=== PATIENT | female | born 1970 | race Caucasian/White ===

== ENCOUNTER 2020-07-26 14:40 | Emergency (ER) | payer OTHER, MEDICAID, SELFPAY ==
[2020-07-26 15:08] VITALS: BP 105/62; PULSE 80; RESP 14; TEMP 36.7; O2SAT 98; BMI 29.7
--- NOTE | 2020-07-26 16:11 | ED_ITS ---
HPI - Skin/Abscess/Foreign Bdy General Chief complaint: Skin/Abscess/Foreign Body Stated complaint: drain installed, that is inflamed, has a fever Time Seen by Provider: 07/26/20 14:44 Source: patient and family Mode of arrival: Ambulatory Limitations: no limitations History of Present Illness HPI narrative: Patient here with her . Status post double mastectomy June 26, 2020 [facility]. Left drain removed 2 weeks ago. However right drain kept in place because it is still having drainage. Serosanguineous. Yesterday patient had subjective fever at home. Denies any cough cold congestion sore throat. No urinary complaints. Patient is on Bactrim for right side drainage or redness 1 week ago. Prescribed by her surgeon. Here for blood work as requested by surgeon. CBC. Patient denies any breast pain Related Data Allergies Allergy/AdvReac Type Severity Reaction Status Date / Time povidone-iodine Allergy Verified 07/26/20 15:12 [From Betadine] soap [From Betadine] Allergy Verified 07/26/20 15:12 Review of Systems Review of Systems Narrative: GENERAL: Denies chills, fatigue, malaise, complains fever, denies sweats. HEENT: Denies sinus pain, ear pain, sore throat, difficulty swallowing, dizziness. RESPIRATORY: Denies dyspnea, cough, wheezing, hemoptysis, sputum. CARDIOVASCULAR: Denies chest pain, palpitations, orthopnea, edema, GASTROINTESTINAL: Denies nausea, vomiting, abdominal pain, diarrhea, constipatio n, melena. : Denies dysuria, frequency, incontinence, hematuria, urinary retention. MUSCULOSKELETAL: denies weakness, joint pain, or bony pain SKIN: Denies rash, skin lesions, or other NEUROLOGIC: Denies weakness, headache, numbness, change in speech, confusion, seizures, incoordination. PSYCHIATRIC: No concerning psychosocial issues. ROS Unobtainable: All systems reviewed & are unremarkable except as noted in HPI and below Patient History Social History Smoking Status: Unknown if ever smoked Smoking Status: Unknown if ever smoked alcohol intake frequency: holidays/special occasions only Substance Use Type: does not use Exam Narrative Exam Narrative: GENERAL: patient appears stated age. Well-nourished, well- developed patient, in no distress, not toxic HEAD: Atraumatic. Normocephalic. CARDIOVASCULAR: Regular rate and rhythm without murmurs, gallops, or rubs. RESPIRATORY: Clear to auscultation. Breath sounds equal bilaterally. No wheezes, rales, or rhonchi. GASTROINTESTINAL: Abdomen soft, non-tender, nondistended. NEURO: AOx4. SKIN: No rash or erythema of visible areas, female nurse at bedside to manager of internal, Dagmar, dressing removed from skin. Drainage site clean and dry. No drainage. Nontender at surgical surface and deep palpation. No palpable abscess. Fluid in the drain is serosanguineous. No pus. No lymphangitis or surrounding erythema at drainage site. Suture intact. No breast tissue tenderness or crepitus or induration PSYCH: Not anxious, is cooperative Initial Vital Signs Initial Vital Signs: Vital Signs Temperature 98.0 F 07/26/20 15:08 Pulse Rate 80 07/26/20 15:08 Respiratory Rate 14 07/26/20 15:08 Blood Pressure 105/62 07/26/20 15:08 Pulse Oximetry 98 07/26/20 15:08 Course Orders Ordered: ED Orders 07/26/20 16:22 Urinalysis and Microscopic Stat 07/26/20 16:27 Complete Blood Count AUTO DIFF Stat Comprehensive Metabolic Panel Stat Lactate (Lactic Acid) Stat Procalcitonin Stat Vital Signs Vital signs: Vital Signs - 8 hr 07/26/20 15:08 Temperature 98.0 F Pulse Rate 80 Respiratory Rate 14 Blood Pressure 105/62 Pulse Oximetry 98 MDM - Skin/Abscess/Foreign Bdy Lab Data Result diagrams: 07/26/20 16:27 07/26/20 16:27 Labs: Lab Results 07/26/20 07/26/20 07/26/20 Range/Units 16:22 16:27 16:27 WBC 2.3 L (4.5-11.0) X10^3/uL RBC 3.73 L (4.0-5.2) X10^6/uL Hgb 11.5 L (12.0-16.0) g/dL Hct 34.4 L (36-46) % MCV 92.1 (80-100) fL MCH 30.7 (26-34) PG MCHC 33.3 (30-36) % RDW 14.4 (11.6-14.8) % Plt Count 177 (150-400) X10^3/uL Neut % (Auto) 31.4 L (50-75) % Lymph % (Auto) 38.4 (25-40) % Long % (Auto) 9.8 (3-14) % Eos % (Auto) 19.9 H (2-4) % Baso % (Auto) 0.5 (0-2) % Neut # (Auto) 700 L (4997-9822) /uL Lymph # (Auto) 900 L (1709-6436) /uL Long # (Auto) 200 (0-900) /uL Eos # (Auto) 500 H (0-450) /uL Baso # (Auto) 0 (0-100) /uL Sodium (137-145) mmol/L Potassium (3.4-5.1) mmol/L Chloride (98-107) mmol/L Carbon Dioxide (22-32) mmol/L BUN (7-17) mg/dL Creatinine (0.52-1.04) mg/dL Estimated GFR (>60) mL/min BUN/Creatinine Ratio (6-22) Glucose (70-100) mg/dL Lactate (0.7-2.1) mmol/L Calcium (8.4-10.2) mg/dL Total Bilirubin (0.2-1.3) mg/dL AST (14-36) IU/L ALT (<35) IU/L Alkaline Phosphatase (38-126) U/L Total Protein (6.3-8.2) g/dL Albumin (3.5-5.0) g/dL Globulin (1.7-4.1) g/dL Albumin/Globulin Ratio (1.0-2.8) Procalcitonin < 0.05 (<0.5) ng/mL Urine Color Yellow Urine Appearance Clear Urine pH 6.0 (4.5-8.0) Ur Specific [place] <=1.005 (1.000-1.035) Urine Protein Negative (Negative) Urine Glucose (UA) Negative (Negative) g/dL Urine Ketones Negative (NEGATIVE) Urine Occult Blood Negative (Negative) Urine Nitrate Negative (Negative) Urine Bilirubin Negative (NEGATIVE) Urine Urobilinogen 0.2 (0.2) E.U./dL Ur Leukocyte Esterase Negative (NEGATIVE) Urine RBC None seen (0-5/HPF) Urine WBC 0-1/hpf (0-5/HPF) Ur Squamous Epith Cells 0-1 /hpf (0-5/HPF) Urine Bacteria None seen (None) Ur Culture Indicated? Cult not indicated 07/26/20 07/26/20 Range/Units 16:27 16:27 WBC (4.5-11.0) X10^3/uL RBC (4.0-5.2) X10^6/uL Hgb (12.0-16.0) g/dL Hct (36-46) % MCV (80-100) fL MCH (26-34) PG MCHC (30-36) % RDW (11.6-14.8) % Plt Count (150-400) X10^3/uL Neut % (Auto) (50-75) % Lymph % (Auto) (25-40) % Long % (Auto) (3-14) % Eos % (Auto) (2-4) % Baso % (Auto) (0-2) % Neut # (Auto) (4748-8265) /uL Lymph # (Auto) (6687-8542) /uL Long # (Auto) (0-900) /uL Eos # (Auto) (0-450) /uL Baso # (Auto) (0-100) /uL Sodium 134 L (137-145) mmol/L Potassium 3.7 (3.4-5.1) mmol/L Chloride 100 (98-107) mmol/L Carbon Dioxide 27 (22-32) mmol/L BUN 9 (7-17) mg/dL Creatinine 0.74 (0.52-1.04) mg/dL Estimated GFR > 60.0 (>60) mL/min BUN/Creatinine Ratio 12.2 (6-22) Glucose 75 (70-100) mg/dL Lactate 0.5 L (0.7-2.1) mmol/L Calcium 8.8 (8.4-10.2) mg/dL Total Bilirubin 0.3 (0.2-1.3) mg/dL AST 30 (14-36) IU/L ALT 20 (<35) IU/L Alkaline Phosphatase 76 (38-126) U/L Total Protein 7.3 (6.3-8.2) g/dL Albumin 4.0 (3.5-5.0) g/dL Globulin 3.3 (1.7-4.1) g/dL Albumin/Globulin Ratio 1.2 (1.0-2.8) Procalcitonin (<0.5) ng/mL Urine Color Urine Appearance Urine pH (4.5-8.0) Ur Specific [place] (1.000-1.035) Urine Protein (Negative) Urine Glucose (UA) (Negative) g/dL Urine Ketones (NEGATIVE) Urine Occult Blood (Negative) Urine Nitrate (Negative) Urine Bilirubin (NEGATIVE) Urine Urobilinogen (0.2) E.U./dL Ur Leukocyte Esterase (NEGATIVE) Urine RBC (0-5/HPF) Urine WBC (0-5/HPF) Ur Squamous Epith Cells (0-5/HPF) Urine Bacteria (None) Ur Culture Indicated? MDM Narrative Medical decision making narrative: Patient not toxic. No fever here. Labor atory results reviewed. No signs of infection on physical exam. Appropriate for discharge home. Patient has follow-up next with her surgeon. Results of today will be faxed to surgeon's office dr kauffman Discharge Plan Departure Patient Disposition: Home Clinical Impression: Encounter for evaluation of wound Discharge Date/Time: 07/26/20 18:04 Instructions: DI for Wound Infection Activity Restrictions/Additional Instructions: Return immediately if worse or if any concerns or questions. See your surgeon next as scheduled. Complete your antibiotics. Return if worse
--- NOTE | 2020-07-26 16:16 | PC.NURSE ---
patient dressing was removed by dr zenaida jp drain site looks intact without redness. placed dressing of 2x2, telfa and tegaderm.
[2020-07-26 16:28] LABS: Bacteria Urine None Seen; RBC Urine None Seen (0-5/HPF)
[2020-07-26 16:29] LABS: Appearance Urine UA CLEAR; Bilirubin Urine UA NEGATIVE (NEGATIVE); Color Urine UA YELLOW; Glucose Urine UA NEGATIVE (Negative); Ketones Urine UA NEGATIVE (NEGATIVE); Leukocyte Esterase Urine UA NEGATIVE (NEGATIVE); Nitrite Urine UA NEGATIVE (Negative); Occult Blood Urine UA NEGATIVE (Negative); Protein Urine UA NEGATIVE (Negative); Specific Gravity Urine UA <=1.005 (1.000-1.035); Urobilinogen Urine UA 0.2 E.U./dL (0.2)
[2020-07-26 16:34] LABS: Add Manual Diff / Slide Review NO; Basophils Absolute Auto 0 /uL (0-100); Basophils Percent Auto 0.5 % (0-2); Eosinophils Absolute Auto 500 /uL (0-450); Eosinophils Percent Auto 19.9 % (2-4); Hematocrit 34.4 % (36-46); Hemoglobin 11.5 g/dL (12.0-16.0); Lymphocytes Absolute Auto 900 /uL (1100-4500); Lymphocytes Percent Auto 38.4 % (25-40); Mean Corpuscular HGB Conc 33.3 % (30-36); Mean Corpuscular Hemoglobin 30.7 PG (26-34); Mean Corpuscular Volume 92.1 fL (80-100); Monocytes Absolute Auto 200 /uL (0-900); Monocytes Percent Auto 9.8 % (3-14); Neutrophils Absolute Auto 700 /uL (1500-7000); Neutrophils Percent Auto 31.4 % (50-75); Platelet Count 177 X10^3/uL (150-400); Red Blood Cell Count 3.73 X10^6/uL (4.0-5.2); Red Cell Distribution Width 14.4 % (11.6-14.8); White Blood Cell Count 2.3 X10^3/uL (4.5-11.0)
[2020-07-26 16:38] LABS: Culture Indicated Urine Cult Not Indicated; Squamous Epithelial Cell Urine 0-1 /HPF (0-5/HPF); WBC Urine 0-1/HPF (0-5/HPF)
[2020-07-26 16:46] LABS: Lactate (Lactic Acid) 0.5 mmol/L (0.7-2.1)
[2020-07-26 16:47] LABS: Alanine Aminotransferase 20 IU/L (<35); Albumin Globulin Ratio 1.2 (1.0-2.8); Alkaline Phosphatase 76 U/L (38-126); Aspartate Aminotransferase 30 IU/L (14-36); BUN Creatinine Ratio 12.2 (6-22); Bilirubin Total 0.3 mg/dL (0.2-1.3); Blood Urea Nitrogen 9 mg/dL (7-17); Calcium 8.8 mg/dL (8.4-10.2); Carbon Dioxide 27 mmol/L (22-32); Chloride 100 mmol/L (98-107); Estimated Glomerular Filt Rate > 60.0 mL/min (>60); Globulin 3.3 g/dL (1.7-4.1); Glucose 75 mg/dL (70-100); HEMOLYSIS < 15 (0-50); Potassium 3.7 mmol/L (3.4-5.1); Sodium 134 mmol/L (137-145); Total Protein 7.3 g/dL (6.3-8.2)
[2020-07-26 17:12] LABS: Procalcitonin < 0.05 ng/mL (<0.5)
[2020-07-26 18:03] VITALS: BP 104/65; PULSE 89; O2SAT 98
[2020-07-28 23:06] LABS: COVID19 Sendout Not Detected (Not Detected)
== END 2020-07-26 18:04 | disposition home or self-care (01) ==
PROVIDERS: Emergency Provider Emergency Medicine
DX: Z98.890 Other specified postprocedural states (principal); R50.9 Fever, unspecified; Z11.59 Encounter for screening for other viral diseases
CPT/HCPCS: 36415; 80053; 81001; 83605; 84145; 85025; 87635; 99281; 99283

== ENCOUNTER 2020-10-27 09:21 | Emergency (ER) | payer OTHER, MEDICAID, SELFPAY ==
[2020-10-27 09:37] VITALS: BP 119/75; PULSE 75; RESP 16; TEMP 36.2; O2SAT 99; BMI 30.2
[2020-10-27 10:30] VITALS: BP 122/77; PULSE 77; RESP 16; O2SAT 99
[2020-10-27] MEDS: CEFTRIAXONE 2 GM/50 ML FROZ.PIGGY IV (10:50)
[2020-10-27 10:53] LABS: Add Manual Diff / Slide Review NO; Basophils Absolute Auto 0 /uL (0-100); Basophils Percent Auto 0.9 % (0-2); Eosinophils Absolute Auto 200 /uL (0-450); Eosinophils Percent Auto 4.6 % (2-4); Hematocrit 32.1 % (36-46); Hemoglobin 10.4 g/dL (12.0-16.0); Lymphocytes Absolute Auto 1400 /uL (1100-4500); Lymphocytes Percent Auto 31.8 % (25-40); Mean Corpuscular HGB Conc 32.4 % (30-36); Mean Corpuscular Hemoglobin 27.2 PG (26-34); Monocytes Absolute Auto 300 /uL (0-900); Monocytes Percent Auto 6.4 % (3-14); Neutrophils Absolute Auto 2500 /uL (1500-7000); Neutrophils Percent Auto 56.3 % (50-75); Platelet Count 262 X10^3/uL (150-400); Red Blood Cell Count 3.82 X10^6/uL (4.0-5.2); White Blood Cell Count 4.4 X10^3/uL (4.5-11.0)
--- NOTE | 2020-10-27 10:54 | ED_ITS ---
HPI - Skin/Abscess/Foreign Bdy General Chief complaint: Skin/Abscess/Foreign Body Stated complaint: painful cyst on R breast, post-reconstruction Time Seen by Provider: 10/27/20 09:27 Source: patient Mode of arrival: Ambulatory History of Present Illness HPI narrative: 50-year-old woman status post bilateral mastectomy August 26 with a FLORENCIO flap reconstructive surgery with Dr. Tarun Orozco in [place]. His since the surgery she has had 4 small episodes of infection around the right reconstructed breast. There was 1 inferiorly that seems to have healed nicely there 3 that are medial 1 that has drained a slight bit 2 that are full and seem to be getting bigger and more tender. She has been on 2 courses of Septra and Keflex and is continuing to develop these abscesses. She reports no fevers, chills, cough, abdominal pain, dysuria, diarrhea or vomiting. She notes that she generally feels like ?something is wrong? with mild body aches over the last 48 hours. No confusion or other signs of sepsis. Onset (ago): hour(s) Tetanus up to date: no Related Data Previous Rx's Medication Instructions Recorded clindamycin HCl 300 mg PO Q8H #21 cap 10/27/20 sulfamethoxazole-trimethoprim 1 tab PO BID #14 tab 10/27/20 Allergies Allergy/AdvReac Type Severity Reaction Status Date / Time povidone-iodine Allergy Verified 10/27/20 09:44 [From Betadine] soap [From Betadine] Allergy Verified 10/27/20 09:44 Review of Systems Review of Systems Narrative: Remainder of review of systems including constitutional, ENT, cardiovascular, respiratory, GI, , musculoskeletal, skin, neurologic and psychiatric systems reviewed and are unremarkable except as noted in HPI. Patient History Medical History Breast cancer Surgical History H/O mastectomy Social History Smoking Status: Unknown if ever smoked Smoking Status: Unknown if ever smoked alcohol intake frequency: holidays/special occasions only Substance Use Type: does not use Exam Narrative Exam Narrative: General: Alert appropriate in no acute distress Respiratory: Able to speak in full sentences, no obvious respiratory distress, no wheezes or rhonchi Cardiac: Regular rate and rhythm no murmurs Breasts: Reconstructed breasts left healing nicely. Right with 3 areas of fluctuance on the medial aspect and a small area with minor drainage inferiorly with no fluctuance or abscess appreciated. No significant surrounding erythema. Peau d'orange skin appreciated around all of the areas medially. Approximate area involved is 6 cm x 12 cm Skin: Well perfused and no rashes aside from the abnormality on the breast appreciated Neurologic: Grossly intact no obvious asymmetries or abnormalities Psych, appropriate insight and affect, cooperative Initial Vital Signs Initial Vital Signs: Vital Signs Temperature 97.2 F L 10/27/20 09:37 Pulse Rate 75 10/27/20 09:37 Respiratory Rate 16 10/27/20 09:37 Blood Pressure 119/75 10/27/20 09:37 Pulse Oximetry 99 10/27/20 09:37 Procedures Abscess I/D I&D #1: Site: chest (Right medial aspect of reconstructed breast) Side (if applicable): right Local Anesthetic: lidocaine 1% and with bicarb Amount of anesthesia used (mL): 8 Technique: incised with #11 blade (3 areas of fluctuance. superior is draining spontaneously and connects with middle. The lower one seems to be independent of the other two) Amount of fluid expressed (mL): 20 Irrigation: Yes Packing used?: iodoform Course Orders Ordered: ED Orders 10/27/20 10:25 Complete Blood Count AUTO DIFF Stat Comprehensive Metabolic Panel Stat Lactate (Lactic Acid) Stat 10/27/20 10:50 Blood Culture Stat Discontinued Medications Ceftriaxone Sodium/Dextrose (Rocephin) 2 gm in 50 mls @ 100 mls/hr IV NOW ONE Stop: 10/27/20 10:36 Last Infusion: 10/27/20 11:49 Dose: 0 mls/hr Documented by: Admin: 10/27/20 10:50 Dose: 100 mls/hr Documented by: GARLAND Vancomycin HCl/Dextrose (Vancomycin) 1,500 mg in 300 mls @ 200 mls/hr IV NOW ONE Stop: 10/27/20 11:40 Last Admin: 10/27/20 11:21 Dose: 200 mls/hr Documented by: GARLAND Lidocaine/Sodium Bicarbonate (Lido 1%/Sod Bicarb 8.4% (10ml) 10 Ml Syringe) 20 ml INJ NOW ONE Stop: 10/27/20 11:11 Last Admin: 10/27/20 11:21 Dose: 20 ml Documented by: GARLAND Vancomycin HCl (Vancomycin Per Pharmacy) 1 request MISC NOW ONE Stop: 10/27/20 10:08 Last Admin: 10/27/20 11:16 Dose: Not Given Documented by: GARLAND Vital Signs Vital signs: Vital Signs - 8 hr 10/27/20 09:37 Temperature 97.2 F L Pulse Rate 75 Respiratory Rate 16 Blood Pressure 119/75 Pulse Oximetry 99 MDM - Skin/Abscess/Foreign Bdy Medical Records Attestation: I reviewed the patient's medical records. Lab Data Attestation: I reviewed the patient's lab results. Result diagrams: 10/27/20 10:25 10/27/20 10:25 Labs: Lab Results 10/27/20 10/27/20 10/27/20 Range/Units 10:25 10:25 10:25 WBC 4.4 L (4.5-11.0) X10^3/uL RBC 3.82 L (4.0-5.2) X10^6/uL Hgb 10.4 L (12.0-16.0) g/dL Hct 32.1 L (36-46) % MCV 84.0 (80-100) fL MCH 27.2 (26-34) PG MCHC 32.4 (30-36) % RDW 17.0 H (11.6-14.8) % Plt Count 262 (150-400) X10^3/uL Neut % (Auto) 56.3 (50-75) % Lymph % (Auto) 31.8 (25-40) % [place] % (Auto) 6.4 (3-14) % Eos % (Auto) 4.6 H (2-4) % Baso % (Auto) 0.9 (0-2) % Neut # (Auto) 2500 (0164-8740) /uL Lymph # (Auto) 1400 (4677-9937) /uL [place] # (Auto) 300 (0-900) /uL Eos # (Auto) 200 (0-450) /uL Baso # (Auto) 0 (0-100) /uL Sodium 139 (137-145) mmol/L Potassium 3.7 (3.4-5.1) mmol/L Chloride 104 (98-107) mmol/L Carbon Dioxide 31 (22-32) mmol/L BUN 16 (7-17) mg/dL Creatinine 0.54 (0.52-1.04) mg/dL Estimated GFR > 60.0 (>60) mL/min BUN/Creatinine Ratio 29.6 H (6-22) Glucose 133 H (70-100) mg/dL Lactate 0.8 (0.7-2.1) mmol/L Calcium 9.1 (8.4-10.2) mg/dL Total Bilirubin 0.3 (0.2-1.3) mg/dL AST 22 (14-36) IU/L ALT 13 (<35) IU/L Alkaline Phosphatase 74 (38-126) U/L Total Protein 6.8 (6.3-8.2) g/dL Albumin 3.7 (3.5-5.0) g/dL Globulin 3.1 (1.7-4.1) g/dL Albumin/Globulin Ratio 1.2 (1.0-2.8) MDM Narrative Medical decision making narrative: 50-year-old woman post bilateral mastectomy with reconstruction. Abscess is developing medial aspect of the right breast. Care is reviewed with her plastic surgeon, Dr. Chidi Orozco. He did suggest that I&D in the emergency department would be appropriate and appreciated. This was undertaken and she tolerated the procedure well. There were cultures sent from the upper to communicating areas as well as the lower abscess. She is given ceftriaxone and vancomycin while waiting for blood to return. Blood work is reassuring without signs of systemic infection or need for continued IV antibiotics. At this time she has completed at least 2 full courses of Septra and Keflex and is still continuing to develop abscesses. Will have her switch to Septra and clindamycin for better MRSA coverage. Prescriptions will be given. She will follow-up with Dr. Orozco at his office on Thursday. She is safe for home discharge Discharge Plan Departure Patient Disposition: Home Clinical Impression: Breast cancer Qualifiers: Breast location: unspecified site of breast Estrogen receptor status: unspecified Patient sex: female Laterality: unspecified laterality Qualified Code(s): C50.919 - Malignant neoplasm of unspecified site of unspecified female breast H/O mastectomy Qualifiers: Laterality: bilateral Qualified Code(s): Z90.13 - Acquired absence of bilateral breasts and nipples Abscess of skin or subcutaneous tissue Qualifiers: Site of cutaneous abscess: trunk Site of cutaneous abscess of trunk: chest wall Qualified Code(s): L02.213 - Cutaneous abscess of chest wall Instructions: DI for Skin Abscess Activity Restrictions/Additional Instructions: Thank you for coming in today The area of concern over your reconstructed right breast was opened with the abscess is drained and a small amount of packing was placed to allow continued drainage. Cultures were obtained. You can use your electronic access to your [facility] chart or you can ask Dr. Orozco or one of his staff to call [facility] at [phone] and ask for microbiology to obtain results over the phone. I am going to suggest that we change her antibiotic regimen to clindamycin and Septra to expand MRSA coverage a bit. If you feel that you are getting worse with increasing redness, pain fevers chills or confusion you do need to return to the emergency department. Dr. Orozco is expecting to see you Thursday morning between 730 and 8 at his office and will re-evaluate at that time. I hope the rest of your recover in treatment goes well. Prescriptions: New clindamycin HCl 300 mg capsule 300 mg PO Q8H Qty: 21 RF: 0 sulfamethoxazole-trimethoprim 800-160 mg tablet 1 tab PO BID Qty: 14 RF: 0
[2020-10-27 11:04] LABS: Lactate (Lactic Acid) 0.8 mmol/L (0.7-2.1)
[2020-10-27 11:05] LABS: Alanine Aminotransferase 13 IU/L (<35); Albumin 3.7 g/dL (3.5-5.0); Albumin Globulin Ratio 1.2 (1.0-2.8); Alkaline Phosphatase 74 U/L (38-126); Aspartate Aminotransferase 22 IU/L (14-36); BUN Creatinine Ratio 29.6 (6-22); Bilirubin Total 0.3 mg/dL (0.2-1.3); Blood Urea Nitrogen 16 mg/dL (7-17); Calcium 9.1 mg/dL (8.4-10.2); Carbon Dioxide 31 mmol/L (22-32); Chloride 104 mmol/L (98-107); Estimated Glomerular Filt Rate > 60.0 mL/min (>60); Globulin 3.1 g/dL (1.7-4.1); Glucose 133 mg/dL (70-100); HEMOLYSIS < 15 (0-50); Potassium 3.7 mmol/L (3.4-5.1); Sodium 139 mmol/L (137-145); Total Protein 6.8 g/dL (6.3-8.2)
[2020-10-27] MEDS: VANCOMYCIN 1,500 MG/300 ML PIGGYBACK 200 MG IV (11:21)
[2020-10-27] MEDS: LIDO 1%/SOD BICARB 8.4% (10ML) 10 ML SYRINGE 20 ML INJ (11:21)
[2020-10-27 11:30] VITALS: BP 118/69; PULSE 68; RESP 16; O2SAT 99
--- NOTE | 2020-10-27 11:50 | PC.NURSE ---
Redness, swelling, 3 abscesses to right breast. I&D performed by Dr. Randolph at this time.
[2020-10-27 12:37] VITALS: BP 119/75; PULSE 74; RESP 17; O2SAT 99
--- NOTE | 2020-10-27 13:07 | PC.NURSE ---
1237 Patient became red hot and flushed during vanco administration. Dr. Randolph informed and medication stopped. Red man's syndrome reaction reported in patient's allergies.
== END 2020-10-27 13:11 | disposition home or self-care (01) ==
PROVIDERS: Emergency Provider Emergency Medicine
DX: Z90.13 Acquired absence of bilateral breasts and nipples (principal); C50.919 Malignant neoplasm of unspecified site of unspecified female breast; L02.213 Cutaneous abscess of chest wall
CPT/HCPCS: 10060; 36415; 80053; 83605; 85025; 87040; 96365; 96367; 96375; 99283; 99284; J0696; J1642